=== PATIENT | male | born 1985 | race American Indian/Alaskan Native ===

== ENCOUNTER 2016-12-25 02:08 | Emergency (ER) | payer SELFPAY ==
[2016-12-25 02:13] VITALS: BP 147/91
[2016-12-25 02:59] LABS: Bilirubin,Urine NEG (Negative); Blood,Urine NEG (Negative); Ketones,Urine NEG (Negative); Leukocyte Esterase,Urine NEG (Negative); Mucus,Urine FEW /HPF; Nitrite,Urine NEG (Negative); Protein,Urine <15 mg/dL mg/dL (Negative); Urobilinogen,Urine < 2.0 mg/dL (<2.0); WBC,Urine < 1.0 /HPF (0.0-6.0)
[2016-12-25 03:30] LABS: Eosinophils % (Auto) 1.5 % (0.0-4.3); Hematocrit 40.2 % (35.5-45.6); Hemoglobin 13.8 gm/dl (11.8-15.2); Mean Corpuscular HGB Conc 34 % (32-34); Mean Corpuscular Hemoglobin 31 pg (28-32); Mean Corpuscular Volume 89 fl (84-94); Platelet Count 206 K/mm3 (140-440); Red Blood Count 4.51 M/mm3 (3.65-5.03); Red Cell Distribution Width 13.2 % (13.2-15.2); White Blood Count 6.3 K/mm3 (4.5-11.0)
[2016-12-25 03:40] LABS: INR 0.94 (0.87-1.13)
[2016-12-25 03:41] LABS: Partial Thromboplastin Time 31.7 Sec. (24.2-36.6)
[2016-12-25 03:50] LABS: Alanine Aminotransferase 19 units/L (7-56); Albumin 4.6 g/dL (3.9-5); Albumin/Globulin Ratio 1.5 %; Alkaline Phosphatase 60 units/L (35-129); Anion Gap 19 mmol/L; BUN/Creatinine Ratio 14; Blood Urea Nitrogen 11 mg/dL (9-20); Calcium 9.5 mg/dL (8.4-10.2); Carbon Dioxide 26 mmol/L (22-30); Chloride 98.8 mmol/L (98-107); Glucose 94 mg/dL (75-100); Lipase 30 units/L (13-60); Potassium 3.9 mmol/L (3.6-5.0); Sodium 140 mmol/L (137-145); Total Protein 7.6 g/dL (6.3-8.2)
--- NOTE | 2016-12-25 07:54 | XRay Report ---
ROUTINE CHEST, TWO VIEWS: HISTORY: chest pain. The trachea, heart, mediastinal contour, lung shelby and bony thorax are unremarkable. IMPRESSION: Unremarkable chest x-ray.
== END 2016-12-25 05:12 | disposition left against medical advice (07) ==
LOC: ED 02:08
DX: R10.9 Unspecified abdominal pain (principal); Z53.21 Procedure and treatment not carried out due to patient leaving prior to being seen by health care provider
CPT/HCPCS: 36415; 71020; 80053; 81001; 83690; 84484; 85025; 85610; 85730; 93005; 93010

== ENCOUNTER 2017-02-17 20:21 | Emergency (ER) | payer OTHER ==
[2017-02-17] MEDS ORDERED: TYLENOL PO ONE (22:13)
[2017-02-17] MEDS ORDERED: CATAPRES PO ONE (22:13)
--- NOTE | 2017-02-17 23:52 | Cat Scan Report ---
FINAL REPORT PROCEDURE: CT HEAD/BRAIN WO CON TECHNIQUE: Computerized tomography of the head was performed without contrast material. HISTORY: headache, and High blood pressure COMPARISON: No prior studies are available for comparison. FINDINGS: Brain: Brain density appears normal. No evidence of intracranial hemorrhage. No parenchymal hemorrhage, mass lesions or mass effect are seen. No abnormal extraxial fluid collects or masses are seen. Ventricles: Ventricles are normal size and are midline. Bone Windows: No evidence of skull fracture. Paranasal sinuses: Clear Mastoid air cells: Clear IMPRESSION: Negative examination
--- NOTE | 2017-02-18 00:47 | Emergency Department Report ---
ED Medical Clearance HPI - General Chief complaint: High BP Stated complaint: HTN Time Seen by Provider: 02/18/17 00:20 Source: patient Mode of arrival: Ambulatory - History of Present Illness Initial comments: 32-year-old male past medical history none presents with complaint of minor headache earlier today and yesterday. Denies chest pain abdominal pain palpitations shortness of breath nausea vomiting blurry vision and dizziness. States that he took his blood pressure at home earlier today and it was 170/ 105. Patient currently asymptomatic states he has no headache whatsoever. Awake alert and oriented 3. Denies any facial upper or lower extremity paresthesias or weakness. Fully lucid and conversant and calm. Denies alcohol or drug use. States he has a family history of hypertension. MD Complaint: medical clearance request Onset/Timin -: days(s) Place: home Alledged Intoxication: No Compliant with Home Medications: No Traumatic Symptoms: denies traumatic injury Treatments Prior to Arrival: none Home medications: Previous Rx's Medication Instructions Recorded Last Taken Type Acetaminophen [Acetaminophen TAB] 500 mg PO Q8H PRN #1 bottle 02/18/17 Unknown Rx Lisinopril/Hydrochlorothiazide 1 each PO QDAY #30 tablet 02/18/17 Unknown Rx [Zestoretic 10-12.5 mg Tablet] Allergies/Adverse reactions: Allergies Allergy/AdvReac Type Severity Reaction Status Date / Time No Known Allergies Allergy Verified 12/25/16 02:28 ED Review of Systems ROS: Stated complaint: HTN Other details as noted in HPI Constitutional: denies: chills, fever Eyes: denies: eye pain, eye discharge, vision change ENT: denies: ear pain, throat pain Respiratory: denies: cough, shortness of breath, wheezing Cardiovascular: denies: chest pain, palpitations Endocrine: no symptoms reported Gastrointestinal: denies: abdominal pain, nausea, diarrhea Genitourinary: denies: urgency, dysuria Musculoskeletal: denies: back pain, joint swelling, arthralgia Skin: denies: rash, lesions Neurological: headache (briefly earlier today has since improved and is now resolved). denies: weakness, paresthesias Psychiatric: denies: anxiety, depression Hematological/Lymphatic: denies: easy bleeding, easy bruising ED Past Medical Hx - Past Medical History Previous Medical History?: Yes - Surgical History Past Surgical History?: Yes - Social History Smoking Status: Never Smoker - Medications Home Medications: Home Medications Medication Instructions Recorded Confirmed Last Taken Type Acetaminophen [Acetaminophen TAB] 500 mg PO Q8H PRN #1 bottle 02/18/17 Unknown Rx Lisinopril/Hydrochlorothiazide 1 each PO QDAY #30 tablet 02/18/17 Unknown Rx [Zestoretic 10-12.5 mg Tablet] ED Physical Exam - General Limitations: No Limitations General appearance: alert, in no apparent distress - Head Head exam: Present: atraumatic, normocephalic - Eye Eye exam: Present: normal appearance, PERRL, EOMI - ENT ENT exam: Present: mucous membranes moist - Neck Neck exam: Present: normal inspection - Respiratory Respiratory exam: Present: normal lung sounds bilaterally. Absent: respiratory distress - Cardiovascular Cardiovascular Exam: Present: regular rate, normal rhythm. Absent: systolic murmur, diastolic murmur, rubs, gallop - GI/Abdominal GI/Abdominal exam: Present: soft, normal bowel sounds - Rectal Rectal exam: Present: deferred - Extremities Exam Extremities exam: Present: normal inspection - Back Exam Back exam: Present: normal inspection - Neurological Exam Neurological exam: Present: alert, oriented X3, CN II-XII intact, normal gait - Expanded Neurological Exam Expanded Patient oriented to: Present: person, place, time Cranial nerves: EOM's Intact: Normal, Facial Sensation: Normal Cerebellar function: Finger to Nose: Normal, Romberg: Normal Sensory exam: Upper Extremity Light Touch: Normal, Lower Extremity Light Touch: Normal Motor strength exam: RUE: 5, LUE: 5, RLE: 5, LLE: 5 DTR: tricep (R): 3+, tricep (L): 3+, knee (R): 3+, knee (L): 3+ Best Eye Response (Capay): (4) open spontaneously Best Motor Response (Capay): (6) obeys commands Best Verbal Response (Theo): (5) oriented Theo Total: 15 - Psychiatric Psychiatric exam: Present: normal affect, normal mood - Skin Skin exam: Present: warm, dry, intact, normal color. Absent: rash ED Course Vital Signs 02/17/17 02/17/17 22:06 22:34 Temperature 98.1 F Pulse Rate 51 L 51 L Respiratory 18 Rate Blood Pressure 165/103 155/65 O2 Sat by Pulse 100 Oximetry ED Medical Decision Making - Medical Decision Making A/P: Symptomatic hypertension 1-will start patient on lisinopril hydrochlorothiazide low doses case discussed with Dr. Morris. Blood pressure has significantly improved since earlier today 2-follow up with primary care doctor. I enforced the importance of follow-up with primary care to the patient 3-I educated patient to avoid salty foods, greasy foods, alcohol and other agents that exacerbate hypertension 4- Patient awake alert and oriented 3, no overt clinical neurological deficits on exam and/or history, Cranial nerves 2, 3, 4, 5, 6, 7, 8,10, 11, 12 intact on clinical exam, patient is fully lucid awake alert and oriented 3 conversant. Denies any upper or lower extremity paresthesias and has 5/5 strength in bilateral upper and lower extremities on clinical exam. ED Disposition Clinical Impression: Hypertension Qualifiers: Hypertension type: unspecified Qualified Code(s): I10 - Essential (primary) hypertension Disposition: TO HOME OR SELFCARE Is pt being admited?: No Does the pt Need Aspirin: No Condition: Stable Instructions: Hypertension (ED), Low Sodium Diet (ED), DASH Eating Plan (ED), Lisinopril/Hydrochlorothiazide (By mouth) Prescriptions: Acetaminophen [Acetaminophen TAB] 500 mg PO Q8H PRN #1 bottle PRN Reason: Headache Lisinopril/Hydrochlorothiazide [Zestoretic 10-12.5 mg Tablet] 1 each PO QDAY # 30 tablet Referrals: BRIGETTE CARRASCO MD [Staff Physician] - 3-5 Days [facility] [Outside] - 3-5 Days [facility] [Outside] - 3-5 Days Forms: Work/School Release Form(ED) Time of Disposition: 01:06
[2017-02-18 00:59] VITALS: BP 140/97
== END 2017-02-18 01:30 | disposition home or self-care (01) ==
LOC: ED 20:21
DX: I10 Essential (primary) hypertension (principal)
CPT/HCPCS: 70450; 99283

== ENCOUNTER 2020-01-26 14:45 | Emergency (ER) | payer OTHER ==
--- NOTE | 2020-01-26 16:13 | Event Note ---
ED Screening Note Date of service: 01/26/20 Time: 16:11 ED Screening Note: Pt complains of hemoptysis x yesterday denies SOB or chest pain hx of HTN denies being on blood thinners This initial assessment/diagnostic orders/clinical plan/treatment(s) is/are subject to change based on patients health status, clinical progression and re- assessment by fellow clinical providers in the ED. Further treatment and workup at subsequent clinical providers discretion. Patient/guardian urged not to elope from the ED as their condition may be serious if not clinically assessed and managed. Initial orders include: labs CXR
[2020-01-26 16:30] LABS: Basophils # (Auto) 0.1 K/mm3 (0.0-0.1); Basophils % (Auto) 1.1 % (0.0-1.8); Eosinophils # (Auto) 0.2 K/mm3 (0.0-0.4); Eosinophils % (Auto) 2.8 % (0.0-4.3); Hematocrit 41.2 % (35.5-45.6); Lymphocytes # (Auto) 2.2 K/mm3 (1.2-5.4); Mean Corpuscular HGB Conc 34 % (32-34); Mean Corpuscular Volume 89 fl (84-94); Monocytes # (Auto) 0.4 K/mm3 (0.0-0.8); Monocytes % (Auto) 7.1 % (0.0-7.3); Platelet Count 279 K/mm3 (140-440); Red Blood Count 4.66 M/mm3 (3.65-5.03)
--- NOTE | 2020-01-26 16:31 | XRay Report ---
CHEST 2 VIEWS INDICATION: hemoptysis. COMPARISON: 12/25/2016. FINDINGS: Support devices: None. Heart: Within normal limits. Lungs/Pleura: No acute air space or interstitial disease. No significant pleural effusion. IMPRESSION: No acute findings. Signer Name: Elio Encarnacion MD Signed: 01/26/2020 4:26 PM Workstation Name: [id number]
[2020-01-26 16:40] LABS: INR 0.98 (0.87-1.13)
[2020-01-26 16:41] LABS: Partial Thromboplastin Time 28.3 Sec. (24.2-36.6)
[2020-01-26 16:53] LABS: Alanine Aminotransferase 17 units/L (7-56); Albumin 4.7 g/dL (3.9-5); BUN/Creatinine Ratio 11; Blood Urea Nitrogen 9 mg/dL (9-20); Calcium 10.1 mg/dL (8.4-10.2); Hemolysis Index 6
[2020-01-26] MEDS ORDERED: IBUPROFEN 600 MG TAB PO ONE (19:46)
[2020-01-26] MEDS ORDERED: BUTALB/ACETAMINOPHEN/CAFFEINE TAB PO ONE (19:46)
--- NOTE | 2020-01-26 20:18 | Emergency Department Report ---
ED General Adult HPI - General Chief complaint: Upper Respiratory Infection Stated complaint: POSS TB/ COUGHING UP BLOOD Time Seen by Provider: 01/26/20 16:10 Source: patient Mode of arrival: Ambulatory Limitations: No Limitations - History of Present Illness Initial comments: Patient is a 34-year-old -Tong[place] male with a history of hypertension who presents to the ED with complaint of acute onset persistent bleeding maxillary gingiva and incisor toothache for the last 2 days. Patient states that the symptoms have been persistent since the onset, and he states that each time he spits saliva it appears that it is blood-tinged. Patient states that the headache has been persistent for the last 8 hours and states that he did not take any medications prior to arrival in the ED for either headache or painful gums. Patient states that he suspects that these symptoms may be due to the prosthetic teeth and metallic crowns on his teeth that may have caused puncture wounds and abrasions on his gums. Patient denies dizziness, syncope, nausea, vomiting, sore throat, cough, chest pain or shortness of breath, change in vision, abdominal pain, fever and chills. MD Complaint: Headache; bleeding painful gums -: Sudden, days(s) (2) Location: head, mouth Radiation: non-radiation Severity scale (0 -10): 7 Quality: aching, sharp Consistency: constant Improves with: none Worsens with: none Associated Symptoms: denies other symptoms, headaches. denies: confusion, chest pain, cough, diaphoresis, fever/chills, loss of appetite, malaise, rash, seizure, shortness of breath, syncope, weakness, other Treatments Prior to Arrival: none - Related Data Previous Rx's Medication Instructions Recorded Last Taken Type Acetaminophen [Acetaminophen TAB] 500 mg PO Q8H PRN #1 bottle 02/18/17 Unknown Rx Lisinopril/Hydrochlorothiazide 1 each PO QDAY #30 tablet 02/18/17 Unknown Rx [Zestoretic 10-12.5 mg Tablet] Amoxicillin [Trimox CAP] 500 mg PO Q8H #30 capsule 01/26/20 Unknown Rx Ibuprofen [Motrin] 800 mg PO Q8HR PRN #30 tablet 01/26/20 Unknown Rx Allergies Allergy/AdvReac Type Severity Reaction Status Date / Time No Known Allergies Allergy Verified 12/25/16 02:28 ED Review of Systems ROS: Stated complaint: POSS TB/ COUGHING UP BLOOD Other details as noted in HPI Constitutional: denies: chills, fever Eyes: denies: eye pain, eye discharge, vision change ENT: dental pain, other (bleeding painful gums). denies: ear pain, throat pain Respiratory: denies: cough, shortness of breath, wheezing Cardiovascular: denies: chest pain, palpitations Endocrine: no symptoms reported Gastrointestinal: denies: abdominal pain, nausea, vomiting, diarrhea Genitourinary: denies: urgency, dysuria Musculoskeletal: denies: back pain, joint swelling, arthralgia Skin: denies: rash, lesions Neurological: denies: headache, weakness, paresthesias Psychiatric: denies: anxiety, depression Hematological/Lymphatic: denies: easy bleeding, easy bruising ED Past Medical Hx - Past Medical History Previous Medical History?: Yes Hx Hypertension: Yes - Surgical History Past Surgical History?: No - Social History Smoking Status: Never Smoker Substance Use Type: None - Medications Home Medications: Home Medications Medication Instructions Recorded Confirmed Last Taken Type Acetaminophen [Acetaminophen TAB] 500 mg PO Q8H PRN #1 bottle 02/18/17 Unknown Rx Lisinopril/Hydrochlorothiazide 1 each PO QDAY #30 tablet 02/18/17 Unknown Rx [Zestoretic 10-12.5 mg Tablet] Amoxicillin [Trimox CAP] 500 mg PO Q8H #30 capsule 01/26/20 Unknown Rx Ibuprofen [Motrin] 800 mg PO Q8HR PRN #30 tablet 01/26/20 Unknown Rx ED Physical Exam - General Limitations: No Limitations General appearance: alert, in no apparent distress - Head Head exam: Present: atraumatic, normocephalic, normal inspection - Eye Eye exam: Present: normal appearance, PERRL, EOMI Pupils: Present: normal accommodation - ENT ENT exam: Present: mucous membranes moist, TM's normal bilaterally, normal external ear exam, other (Painful bleeding gums in the upper gum and incisor teeth; Palpable frontal scalp tenderness) - Neck Neck exam: Present: normal inspection, full ROM - Respiratory Respiratory exam: Present: normal lung sounds bilaterally. Absent: respiratory distress, wheezes, rales, rhonchi, chest wall tenderness, accessory muscle use, decreased breath sounds, prolonged expiratory - Cardiovascular Cardiovascular Exam: Present: regular rate, normal rhythm, normal heart sounds. Absent: systolic murmur, diastolic murmur, rubs, gallop - GI/Abdominal GI/Abdominal exam: Present: soft, normal bowel sounds. Absent: distended, tenderness, guarding, rebound, hyperactive bowel sounds, hypoactive bowel sounds , organomegaly - Extremities Exam Extremities exam: Present: normal inspection, full ROM, normal capillary refill - Back Exam Back exam: Present: normal inspection, full ROM. Absent: tenderness, CVA tenderness (R), CVA tenderness (L), muscle spasm, paraspinal tenderness, vertebral tenderness - Neurological Exam Neurological exam: Present: alert, oriented X3, CN II-XII intact, normal gait, reflexes normal - Psychiatric Psychiatric exam: Present: normal affect, normal mood - Skin Skin exam: Present: warm, dry, intact, normal color. Absent: rash ED Course Vital Signs 01/26/20 01/26/20 15:17 16:07 Temperature 98.9 F 98.9 F Pulse Rate 87 18 L Respiratory 18 20 Rate Blood Pressure 141/93 Blood Pressure 141/93 [Right] O2 Sat by Pulse 97 97 Oximetry ED Medical Decision Making - Lab Data Result diagrams: 01/26/20 16:13 01/26/20 16:13 - Medical Decision Making This is a 34-year-old -Tong[place] male with a history of hypertension who presents to the ED with complaint of acute onset persistent bleeding maxillary gingiva and incisor toothache for the last 2 days. Patient states that the symptoms have been persistent since the onset, and he states that each time he spits saliva it appears that it is blood-tinged. Patient states that the headache has been persistent for the last 8 hours and states that he did not take any medications prior to arrival in the ED for either headache or painful gums. Patient states that he suspects that these symptoms may be due to the prosthetic teeth and metallic crowns on his teeth that may have caused puncture wounds and abrasions on his gums. In the ED, patient is alert and oriented x3 and is not in distress. Patient was treated for pain in the ED when discharged home on pain medication and prophylactic antibiotics. Patient was advised to follow-up with his dentist or primary care physician in 7 to 10 days for reevaluation or return to the ED immediately if symptoms get worse. - Differential Diagnosis gingivitis; dental caries; oral ulcers; dental abscess Critical care attestation.: If time is entered above; I have spent that time in minutes in the direct care of this critically ill patient, excluding procedure time. ED Disposition Clinical Impression: Dental cavities, Acute gingivitis, Sinus headache Disposition: TO HOME OR SELFCARE Is pt being admited?: No Does the pt Need Aspirin: No Condition: Stable Instructions: Preventive Dental Care, Adult Additional Instructions: Take medication with food, drink plenty of fluids and follow-up with your primary care physician in 7 to 10 days for reevaluation. Return to the ED immediately if symptoms get worse. Prescriptions: Ibuprofen [Motrin] 800 mg PO Q8HR PRN #30 tablet PRN Reason: Pain , Severe (7-10) Amoxicillin [Trimox CAP] 500 mg PO Q8H #30 capsule Referrals: [facility] [Outside] - 3-5 Days [facility] [Outside] - 3-5 Days Time of Disposition: 20:15 Print Language: GREENLAND[place]
[2020-01-26 21:42] VITALS: BP 132/75
== END 2020-01-26 21:19 | disposition home or self-care (01) ==
LOC: ED 14:45
DX: K05.00 Acute gingivitis, plaque induced (principal); R51.9 Headache, unspecified; K02.9 Dental caries, unspecified; I10 Essential (primary) hypertension; Z79.1 Long term (current) use of non-steroidal anti-inflammatories (NSAID); Z79.2 Long term (current) use of antibiotics; Z79.899 Other long term (current) drug therapy
CPT/HCPCS: 36415; 71046; 80053; 85025; 85610; 85730